=== PATIENT | female | born 1960 | race Two or more races ===

== ENCOUNTER 2017-11-05 12:27 | Emergency (ER) | payer OTHER ==
[~2017-11-05] VITALS: Ht 162.6 cm; Wt 72.6 kg
--- NOTE | 2017-11-05 12:58 | PHYS DOC ---
Past History Past Medical History: Diabetes, Fibromyalgia, High Cholesterol, Hypertension Past Surgical History: Cholecystectomy, Hysterectomy, Other Alcohol Use: None Drug Use: None Adult General Chief Complaint Chief Complaint: WRIST PAIN HPI HPI Patient is a 57 year old female who presents with right hand pain. She states she fell off her chair when she's reaching for pen on Saturday. She states she's been having some pain and discomfort especially when she started type. She denies any other injuries. Review of Systems Review of Systems Constitutional: Denies fever or chills [] Eyes: Denies change in visual acuity, redness, or eye pain [] HENT: Denies nasal congestion or sore throat [] Respiratory: Denies cough or shortness of breath [] Cardiovascular: No additional information not addressed in HPI [] GI: Denies abdominal pain, nausea, vomiting, bloody stools or diarrhea [] : Denies dysuria or hematuria [] Musculoskeletal: Denies back pain, positive for right hand pain Integument: Denies rash or skin lesions [] Neurologic: Denies headache, focal weakness or sensory changes [] Endocrine: Denies polyuria or polydipsia [] All other systems were reviewed and found to be within normal limits, except as documented in this note. Physical Exam Physical Exam Constitutional: Well developed, well nourished, no acute distress, non-toxic appearance. [] HENT: Normocephalic, atraumatic, bilateral external ears normal, oropharynx moist, no oral exudates, nose normal. [] Eyes: PERRLA, EOMI, conjunctiva normal, no discharge. [] Neck: Normal range of motion, no tenderness, supple, no stridor. [] Cardiovascular:Heart rate regular rhythm, no murmur [] Lungs & Thorax: Bilateral breath sounds clear to auscultation [] Abdomen: Bowel sounds normal, soft, no tenderness, no masses, no pulsatile masses. [] Skin: Warm, dry, no erythema, no rash. [] Back: No tenderness, no CVA tenderness. [] Extremities: Mild tender palpation over the right hand from metacarpals 1 through 5, no wrist tenderness or snuffbox tenderness appreciated, sensation intact to light touch and motor is intact to flexion and extension's at wrist and MCP PIP DIP joints to radial ulnar and median nerve distributions, no swelling, ring on the fourth digit is loose, No cyanosis, no clubbing, ROM intact, no edema. [] Neurologic: Alert and oriented X 3, normal motor function, normal sensory function, no focal deficits noted. [] Psychologic: Affect normal, judgement normal, mood normal. [] Current Patient Data Vital Signs Vital Signs Date Time Temp Pulse Resp B/P (MAP) Pulse Ox O2 Delivery O2 Flow Rate FiO2 11/05/17 12:44 98.3 88 20 98 Room Air EKG EKG [] Radiology/Procedures Radiology/Procedures [address] [id number] IMAGING REPORT Signed PATIENT: SPENCER ACCOUNT: [id number] : 1960 LOCATION: ER AGE: 57 SEX: F EXAM STATUS: REG ER ORD. PHYSICIAN: LASHELL CONTRERAS MD REASON: pain after fall PROCEDURE: HAND RIGHT 3V Right hand, 3 views, 11/05/2017: History: Fall, pain No fracture or dislocation is identified. The soft tissues are unremarkable. IMPRESSION: No acute right hand abnormality is detected. DICTATED AND SIGNED BY: CHI PEARSON MD DATE: 11/05/17 1336 CC: LASHELL CONTRERAS MD; JASON BALDWIN MD ~ Impressions: Hand contusion Course & Med Decision Making Course & Med Decision Making Pertinent Labs and Imaging studies reviewed. (See chart for details) 3 views of the right hand did not show any fractures or other abnormalities. Patient's being discharged from the ER and can use Epsom salt soaks, ice or heat to help with discomfort. Return precautions given for increasing pain fevers swelling or other concerns. Dragon Disclaimer Dragon Disclaimer This electronic medical record was generated, in whole or in part, using a voice recognition dictation system. Departure Departure: Impression: Primary Impression: Hand contusion Disposition: 01 HOME, SELF-CARE Condition: STABLE Referrals: JASON BALDWIN MD (PCP) Patient Instructions: Hand Contusion Additional Instructions: X-rays do not show anything broken. You do not have any pain in your wrist and therefore at this time you need a splint. You can use ice or heat or Epsom salts soaks which every prefer for pain and discomfort. If your pain persists over the next week, you notice any swelling, your fingers turn blue purple or you have severe pain please return back to the ER. You should follow-up to primary care physician within the week. Problem Qualifiers Primary Impression: Hand contusion Encounter type: initial encounter Laterality: right Qualified Codes: S60.221A - Contusion of right hand, initial encounter LASHELL CONTRERAS MD Nov 05, 2017 12:58
--- NOTE | 2017-11-05 13:34 | RAD ---
Right hand, 3 views, 11/05/2017: History: Fall, pain No fracture or dislocation is identified. The soft tissues are unremarkable. IMPRESSION: No acute right hand abnormality is detected.
[2017-11-05 13:43] VITALS: BP 140/90
== END 2017-11-05 13:46 | disposition home or self-care (01) ==
LOC: ER 12:27
DX: S60.221A Contusion of right hand, initial encounter (principal); E11.9 Type 2 diabetes mellitus without complications; M79.7 Fibromyalgia; I10 Essential (primary) hypertension; E78.00 Pure hypercholesterolemia, unspecified; W07.XXXA Fall from chair, initial encounter; Y93.89 Activity, other specified; Y99.8 Other external cause status; Y92.89 Other specified places as the place of occurrence of the external cause
CPT/HCPCS: 73130; 99284

== ENCOUNTER → 2020-06-04 | Outpatient (CLI) | payer OTHER, BC | LOC: LAB 22:17 | PROVIDERS: ATTEND Internal Medicine Cardiovascular Disease | DX: U07.1 COVID-19 (principal) | CPT/HCPCS: U0003-CS ==

== ENCOUNTER → 2020-06-15 | Outpatient (CLI) | payer OTHER | END | disposition home or self-care (01) | LOC: LAB 12:15 | PROVIDERS: ATTEND Internal Medicine Cardiovascular Disease | DX: R53.81 Other malaise (principal); Z20.828 Contact with and (suspected) exposure to other viral communicable diseases | CPT/HCPCS: U0003-CS ==

== ENCOUNTER → 2020-06-16 | Outpatient (CLI) | payer OTHER | END | disposition home or self-care (01) | LOC: LAB 14:23 | PROVIDERS: ATTEND Internal Medicine Cardiovascular Disease | DX: R53.81 Other malaise (principal); Z20.828 Contact with and (suspected) exposure to other viral communicable diseases | CPT/HCPCS: U0003-CS ==